=== PATIENT | female | born 1985 | race Caucasian/White ===

== ENCOUNTER 2024-05-24 18:33 | Emergency (ER) | payer MEDICAID ==
[~2024-05-24] VITALS: Ht 167.6 cm; Wt 105.4 kg
[2024-05-24 19:09] VITALS: BP 126/69; PULSE 110; RESP 18; TEMP 98.3; O2SAT 98
[2024-05-24 19:53] VITALS: TEMP 98.3
[2024-05-24 20:18] LABS: BASOPHILS % (AUTO) 0.3 % (0.0-2.0); HEMATOCRIT 35.7 % (36-48); HEMOGLOBIN 11.4 g/dL (12.0-16.0); LYMPHOCYTES # (AUTO) 1.8 K/uL (2.5-16.5); LYMPHOCYTES % (AUTO) 11.1 % (20.5-51.1); MEAN CORPUSCULAR HEMOGLOBIN 24 pg (27-31); MEAN CORPUSCULAR HGB CONC 32 g/dL (33-37); MONOCYTES % (AUTO) 6.2 % (1.7-9.3); NEUTROPHILS # (AUTO) 13.5 K/uL (1.8-7.7); NEUTROPHILS % (AUTO) 82.4 % (42.2-75.2); PLATELET COUNT (AUTO) 319 K/uL (140-450); RED BLOOD CELL COUNT(AUTO) 4.76 MIL/uL (4.20-5.40); RED CELL DISTRIBUTION WIDTH 15.1 % (11.6-13.7); WHITE BLOOD COUNT (AUTO) 16.4 K/uL (4.8-10.8)
[2024-05-24 20:23] LABS: APPEARANCE,URINE CLEAR (CLEAR); BILIRUBIN,URINE NEGATIVE (NEGATIVE); BLOOD, URINE 3+ (NEGATIVE); COLOR,URINE YELLOW (YELLOW); LEUKOCYTE ESTERASE ,URINE NEGATIVE (NEGATIVE); NITRITE, URINE NEGATIVE (NEGATIVE); PROTEIN,URINE NEGATIVE (NEGATIVE); UGLUCOSE NEGATIVE (NEGATIVE); UROBILINOGEN,URINE 0.2 EU/dL (0.2 - 1)
[2024-05-24 20:33] LABS: ALBUMIN 3.5 g/dL (3.4-5.0); ANION GAP 11.9 (8-16); CALCIUM 9.1 mg/dL (8.5-10.1); CREATININE 0.8 mg/dL (0.6-1.3); TOTAL BILIRUBIN 0.4 mg/dL (0.0-1.0); TOTAL PROTEIN, SERUM 8.1 g/dL (6.4-8.2)
[2024-05-24 20:37] LABS: BACTERIA,URINE FEW /HPF (None Seen); RBC,URINE 11-20 (MOD) /HPF (0-5); SQUAMOUS EPITHELIAL CELL,UR 4-10 (MOD) /LPF (0-3 (FEW)); WBC,URINE 0-5 /HPF (0-5)
[2024-05-24 20:42] LABS: POTASSIUM 2.9 mmol/L (3.5-5.1)
[2024-05-24] MEDS ORDERED: POTASSIUM CHL 20 MEQ/NACL 0.9% 1,000 ML IV ONE (20:45)
[2024-05-24] MEDS: NACL 0.9% 1,000 ML IV ONE (21:05)
[2024-05-24] MEDS: KCL 20 MEQ IN 100 mL PREMIX 200 ML IV ONE (21:07)
[2024-05-24 21:42] VITALS: BP 136/83; PULSE 100; RESP 16; O2SAT 98
[2024-05-24] MEDS: POTASSIUM CHLORIDE 10 MEQ TABER PO ONE (23:11)
[2024-05-24] MEDS ORDERED: CIPR500T4 PO (23:13)
[2024-05-24] MEDS ORDERED: METR-520 PO (23:13)
[2024-05-24] MEDS: KETOROLAC 30 MG/ML VIAL IVP ONE (23:22)
== END 2024-05-24 23:30 | disposition home or self-care (01) ==
LOC: MED 18:33
DX: K52.9 Noninfective gastroenteritis and colitis, unspecified (principal); E87.6 Hypokalemia; Z79.899 Other long term (current) drug therapy; Z88.2 Allergy status to sulfonamides; Z88.8 Allergy status to other drugs, medicaments and biological substances
CPT/HCPCS: 36415; 74177; 80053; 81001; 81025; 83690; 83735; 85025; 96365; 96366; 96375; 99285; J1885; J3480; Q9967